=== PATIENT | female | born 1965 | race Caucasian/White ===

== ENCOUNTER 2020-10-05 16:19 | Emergency (ER) | payer OTHER ==
[~2020-10-05 16:19] MED LIST: AZITHROMYCIN250 MG PO; CELEXA20 MG PO; FENOFIBRATE150 MG PO; FLEXERIL10 MG PO; IBUPROFEN800 MG PO; LEXAPRO20 MG PO; MEDROL 4MG DOSEP4 MG PO; METHOCARBAMOL500 MG PO; MOBIC7.5 MG PO; MOTRIN600 MG PO; MUCINEX 600MG600 MG PO; NORCO 5-325 TA1 EACH PO; PERCOCET 5-3251 EACH PO; PREDNISONE 20MG20 MG PO; SEROQUEL 25MG T25 MG PO; SYNTHROID100 MCG PO; TESSALON PERLE100 MG PO; VENTOLIN HFA IN18 GM INH
[2020-10-05 17:28] LABS: BASOPHIL 1.1 % (0-2); HCT 43.4 % (37.0-47.0); HGB 14.2 g/dl (12.5-16.0); LYMPHOCYTE 20.4 % (15-48); MCH 28.9 pg (25.0-31.0); MCHC 32.7 g/dL (32.0-36.0); MCV 88.4 fL (78.0-100.0); MONOCYTE 7.6 % (0-12); MPV 10.3 fL (6.0-9.5); NEUTROPHIL 67.3 % (41-80); NRBC 0; PLT 302 K/uL (150-400); RBC 4.91 M/uL (4.20-5.40); RDW 13.6 % (11.5-14.0); WBC 8.4 K/uL (4.0-10.5)
[2020-10-05 17:52] LABS: ALBUMIN 3.9 g/dL (3.4-5.0); BILIRUBIN - TOTAL 0.5 mg/dL (0.2-1.0); BUN/CREAT RATIO (CALC) 17.6 RATIO; CREATININE 0.91 mg/dL (0.51-0.95); GLOBULIN (CALCULATION) 3.4 g/dL; POTASSIUM 3.9 mmol/L (3.5-5.1); TOTAL PROTEIN 7.3 g/dL (6.4-8.2)
[2020-10-05 18:01] LABS: LACTIC ACID 0.9 mmol/L (0.4-1.9)
[2020-10-05 18:20] LABS: BILIRUBIN NEGATIVE (NEGATIVE); BLOOD TRACE-LYSED Ery/uL (NEGATIVE); CLARITY CLEAR (CLEAR); COLOR YELLOW (YELLOW); GLUCOSE (U) NORMAL (NORMAL); LEUKOCYTES 1+ Leu/uL (NEGATIVE); NITRITE NEGATIVE (NEGATIVE); PROTEIN NEGATIVE (NEGATIVE); SPECIFIC GRAVITY 1.025 (1.001-1.030); UROBILINOGEN 0.2 mg/dL (0.2-1.0)
[2020-10-05 18:29] LABS: BACTERIA TRACE
[2020-10-05] MEDS ORDERED: NORCO 5-325 TA1 EACH PO (19:15)
[2020-10-05] MEDS ORDERED: ETODOLAC500 MG PO (19:15)
[2020-10-05] MEDS ORDERED: MEDROL 4MG DOSEP4 MG PO (19:15)
== END 2020-10-05 19:46 | disposition home or self-care (01) ==
LOC: FER 16:19
PROVIDERS: Emergency Medicine
DX: M54.5 Low back pain (principal); R93.5 Abnormal findings on diagnostic imaging of other abdominal regions, including retroperitoneum
CPT/HCPCS: 36415; 80053; 81001; 83605; 83690; 85025; J2270; J2405

== ENCOUNTER 2020-12-13 17:00 | Emergency (ER) | payer OTHER ==
[~2020-12-13 17:00] MED LIST changes: +ETODOLAC500 MG PO
[2020-12-13 18:05] LABS: BASOPHIL 0.9 % (0-2); EOSINOPHIL 3.3 % (0-5); HCT 44.1 % (37.0-47.0); HGB 14.4 g/dl (12.5-16.0); MCHC 32.7 g/dL (32.0-36.0); MCV 88.9 fL (78.0-100.0); MONOCYTE 7.5 % (0-12); MPV 9.9 fL (6.0-9.5); NEUTROPHIL 70.5 % (41-80); NRBC 0; PLT 282 K/uL (150-400); RBC 4.96 M/uL (4.20-5.40); WBC 7.9 K/uL (4.0-10.5)
[2020-12-13 18:05] LABS: BILIRUBIN NEGATIVE (NEGATIVE); BLOOD NEGATIVE Ery/uL (NEGATIVE); CLARITY CLEAR (CLEAR); COLOR YELLOW (YELLOW); GLUCOSE (U) NORMAL (NORMAL); LEUKOCYTES NEGATIVE Leu/uL (NEGATIVE); NITRITE NEGATIVE (NEGATIVE); PROTEIN NEGATIVE (NEGATIVE); SPECIFIC GRAVITY 1.015 (1.001-1.030); UROBILINOGEN 0.2 mg/dL (0.2-1.0); pH 6.5 (5.0-9.0)
[2020-12-13 18:18] LABS: BUN/CREAT RATIO (CALC) 16.1 RATIO; CREATININE 0.87 mg/dL (0.51-0.95); POTASSIUM 3.9 mmol/L (3.5-5.1)
== END 2020-12-13 20:57 | disposition home or self-care (01) ==
LOC: FER 17:00
PROVIDERS: Nurse Practitioner
DX: R51.9 Headache, unspecified (principal)
CPT/HCPCS: 36415; 70450; 80048; 81003; 85025; 96372; J1100; J1200; J1885; J2765; J3030; J7030

== ENCOUNTER 2022-01-18 14:07 | Emergency (ER) | payer OTHER ==
[2022-01-18] MEDS ORDERED: CYCLOBENZAPRINE10 MG PO (15:15)
[2022-01-18] MEDS ORDERED: MEDROL 4MG DOSEP4 MG PO (15:15)
== END 2022-01-18 16:22 | disposition home or self-care (01) ==
LOC: FER 14:07
DX: S39.012A Strain of muscle, fascia and tendon of lower back, initial encounter (principal); E03.9 Hypothyroidism, unspecified; Z79.890 Hormone replacement therapy; X50.0XXA Overexertion from strenuous movement or load, initial encounter; Z28.310 Unvaccinated for COVID-19
CPT/HCPCS: 72110